=== PATIENT | male | born 1945 | race Caucasian/White ===

== ENCOUNTER 2016-08-15 06:25 | Day surgery (SDC) | payer MEDICARE ==
[~2016-08-15] VITALS: Ht 177.8 cm; Wt 108.4 kg
[2016-08-15] MEDS ORDERED: SODIUM CHLOR 0.9% 1000 ML INJ 1,000 ML IV SCH ×2 (07:15→10:26)
[2016-08-15] MEDS ORDERED: SODIUM CHLORIDE 0.9% FLUSH 5 ML FLUSH IV FLUSH PRN (07:15)
[2016-08-15] MEDS ORDERED: DO NOT GIVE AM GLUCOPHAGE, GLUCOPHAGE XR, GLIPIZIDE, GLYBURIDE OR AVANDAMET XX PRN (07:15)
[2016-08-15 07:28] VITALS: BP 178/86; PULSE 111; RESP 18; TEMP 98.2; O2SAT 93
[2016-08-15] MEDS ORDERED: DOXA1TAB35 PO (07:31)
[2016-08-15] MEDS ORDERED: METO100T PO (07:31)
[2016-08-15] MEDS ORDERED: VITA1000 PO (07:31)
[2016-08-15] MEDS ORDERED: TRIAPOW (07:31)
[2016-08-15] MEDS ORDERED: ALLO100T PO (07:31)
[2016-08-15] MEDS ORDERED: HYDR50TA15 PO (07:31)
[2016-08-15] MEDS ORDERED: CILO100T PO (07:31)
[2016-08-15] MEDS ORDERED: OXYC-395 PO (07:31)
[2016-08-15] MEDS ORDERED: SERT25TA83 PO (07:31)
[2016-08-15] MEDS ORDERED: LOSA50TA PO (07:31)
[2016-08-15] MEDS ORDERED: ROPI1TAB PO (07:31)
[2016-08-15] MEDS ORDERED: FURO80TA PO (07:31)
[2016-08-15] MEDS ORDERED: ASPI81CH CHEW (07:31)
[2016-08-15] MEDS ORDERED: HEPARIN-NS/PF INJ 500 ML ONE (08:40)
[2016-08-15] MEDS ORDERED: MIDAZOLAM HCL 2 MG/2 ML VIAL ONE ×3 (08:40→09:58)
[2016-08-15] MEDS ORDERED: HEPARIN SODIUM - IV 10,000 UNITS/10 ML VIAL ONE (08:41)
[2016-08-15] MEDS ORDERED: NITROGLYCERIN INJ 5 ML ONE (08:41)
[2016-08-15] MEDS ORDERED: SODIUM CHLORIDE 0.9% FLUSH 5 ML FLUSH IV FLUSH SCH (09:00)
[2016-08-15] MEDS ORDERED: CLOPIDOGREL 300 MG TAB ONE (09:58)
[2016-08-15] MEDS ORDERED: oxyCODONE/ACETAMINOPHEN 5 MG/325 MG TAB PO PRN ×2 (10:30)
[2016-08-15] MEDS ORDERED: LIDOCAINE HCL 1% 50 ML VIAL INFIL PRN (10:30)
[2016-08-15] MEDS ORDERED: METOCLOPRAMIDE HCL 10 MG/2 ML VIAL IV PRN (10:30)
[2016-08-15] MEDS ORDERED: SODIUM CHLOR 0.9% 250 ML INJ 250 ML IV PRN (10:30)
[2016-08-15] MEDS ORDERED: MORPHINE SULFATE 4 MG/ML INJ IV PUSH PRN (10:30)
[2016-08-15] MEDS ORDERED: POTASSIUM CHLORIDE 20 MEQ CONTROLLED RELEASE TAB PO PRN (10:30)
[2016-08-15] MEDS ORDERED: SODIUM CHLORIDE 0.9% FLUSH 5 ML FLUSH IVF PRN (10:30)
[2016-08-15] MEDS ORDERED: ONDANSETRON HCL 4 MG/2 ML VIAL IV PRN (10:30)
[2016-08-15] MEDS ORDERED: MISC INFORMATION XX PRN (10:30)
[2016-08-15] MEDS ORDERED: cloNIDine HCL 0.1 MG TAB PO PRN (10:30)
[2016-08-15] MEDS ORDERED: BACITRACIN OINT 0.9 GM PKT TOP ONE (10:30)
[2016-08-15] MEDS ORDERED: ATROPINE SULFATE 1 MG/ML VIAL IV PRN (10:30)
[2016-08-15] MEDS ORDERED: ENALAPRILAT 1.25 MG/ML VIAL IV PRN (10:30)
[2016-08-15] MEDS ORDERED: LORazepam 2 MG/ML VIAL IV PRN (10:30)
[2016-08-15] MEDS ORDERED: CLOPIDOGREL 300 MG TAB PO ONE (10:30)
[2016-08-15] MEDS ORDERED: IOHEXOL 350 MG/ML 50 ML BTL (for RAD DIAG) OTHER ONE (10:30)
[2016-08-15] MEDS ORDERED: NITROPRUSSIDE INJ 50 MG in DEXTROSE 5% IN WATER INJ 248 ML IV SCH ×2 (10:30)
[2016-08-15] MEDS ORDERED: PLAV75TA29 PO (10:37)
[2016-08-15] MEDS: LABETALOL HCL 100 MG/20 ML VIAL IVP PRN ×2 (11:25→11:42)
--- NOTE | 2016-08-15 12:58 | MA ---
cc: RACIEL GREWAL Corrected Copy: 08/15/16 DATE 08/15/2016 Peripheral angiography with intervention. PROCEDURE PERFORMED 1. Fluoroscopy with interpretation. 2. descending arteriography. 3. Bilateral lower extremity peripheral angiography, first, second, third order of visualization interpretation. 4. Orbital rotational atherectomy and balloon angioplasty with drug coated balloon of the right superficial femoral artery. 5. Percutaneous transluminal angioplasty of the right peroneal artery. METHOD Risks, benefits and alternatives were discussed with the patient, the patient understood and consented to the procedure. The patient was brought to the catheterization lab and placed on the catheterization table. Left groin was prepped and draped in sterile fashion. Left groin was anesthetized with 2% lidocaine. Left common femoral artery was cannulated and a 5-Japanese, 11 cm sheath was placed without difficulty. PROCEDURE The patient brought into the catheterization lab and placed on the catheterization table. The left groin was prepped and draped in a sterile fashion. The left groin was anesthetized with 2% lidocaine. The left common femoral artery is cannulated. A 5 Japanese 11 cm sheath was placed without difficulty. DESCENDING AORTOGRAPHY Descending aortography was performed through anterior-posterior views using a 24 cc contrast injection with good opacification. Descending aortography revealed mild infrarenal descending aortic atherosclerosis. Bilateral renal arteries are widely patent. PERIPHERAL ANGIOGRAPHY 1. Right internal, external common iliac artery is angiographically normal. Right common and femoral profunda arteries have luminal irregularities. Right superficial femoral artery has an 80% tubular stenosis in the mid segment. Popliteal artery has minor luminal irregularities. There is two-vessel runoff below the knee right lower extremity. The peroneal vessel has a 90% discrete stenosis in the midsegment. The anterior tibial has moderate diffuse disease. The posterior tibial is occluded and collateralizes distally. 2. Left internal, external common iliac arteries have minor luminal irregularities. Left common femoral and profunda arteries have mild luminal irregularities. Left superficial femoral artery has a 75% stenosis. Left popliteal has minor luminal irregularities. There is two-vessel runoff below the knee left lower extremity. Anterior tibial and peroneal vessels are patent. The posterior tibial is occluded. PERCUTANEOUS INTERVENTION A 6 Japanese 45 cm Terumo get2play pinnacle sheath was advanced up-and-over the arch. A 0.035 inch, 260 cm stiff angle Glidewire was navigated down to the popliteal artery. The Trailblazer catheter advanced behind it. Selective digital subtraction angiography confirmed intraluminal placement. A 0.014 inches 335 cm viper wire was then navigated down the peroneal vessel. A 4.0 x 20 mm Medtronic balloon was advanced down to the mid peroneal artery and deployed to 6 atmospheres. Repeat angiography showed no residual stenosis. This was done to ensure adequate runoff. Attention was then directed towards right superficial femoral artery. A 2.0 mm CSI atherectomy catheter was then prepped. Orbital rotational atherectomy was performed through the right superficial femoral artery and three sequential passes. Predilation was then performed with a 6.0 x 40 mm Medtronic balloon. Repeat angiography showed moderate residual stenosis. A 7.0 x 80 mm Medtronic drug coated balloon was then deployed for prolonged inflation in the right superficial femoral. Repeat angiography showed no residual stenosis, AMINAH-3 flow. The sheath was removed. A 6-Japanese sheath placed without difficulty. CONCLUSIONS 1. 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 2. Successful orbital rotational atherectomy and balloon angioplasty drug coated balloon of the right superficial femoral artery. 3. Successful balloon angioplasty right peroneal artery. 4. Mild infrarenal descending aortic atherosclerosis. PLAN The patient will be monitored closely for any post procedural complications. He will be initiated on Plavix in addition to continued aggressive medical therapy. Anticipate discharge later today. At some point, we may consider discussion of staged intervention of the left lower extremity. We will review to see how his symptoms develop. MD MATEUS Chi/BUSTER /10:35 AM /2:12 PM
[2016-08-15] MEDS ORDERED: FUROSEMIDE 40 MG/4 ML VIAL ONE (17:43)
[2016-08-15] MEDS ORDERED: FUROSEMIDE 40 MG/4 ML VIAL IV PUSH ONE (18:00)
[2016-08-15] MEDS ORDERED: FUROSEMIDE 80 MG TAB PO SCH (18:00)
[2016-08-15] MEDS ORDERED: SODIUM CHLORIDE 0.9% FLUSH 5 ML FLUSH IVF SCH (21:00)
[2016-08-17] MEDS ORDERED: ASPIRIN EC 81 MG TABEC PO SCH (09:00)
[2016-08-17] MEDS ORDERED: CLOPIDOGREL 75 MG TAB PO SCH (09:00)
== END 2016-08-15 18:22 | disposition home or self-care (01) ==
LOC: HDOC 06:25 → HDIC 06:27 → HDOC 18:22
PROVIDERS: ATTEND Internal Medicine
DX: I70.211 Atherosclerosis of native arteries of extremities with intermittent claudication, right leg (principal); I70.0 Atherosclerosis of aorta; I10 Essential (primary) hypertension; E11.9 Type 2 diabetes mellitus without complications; Z79.01 Long term (current) use of anticoagulants
CPT/HCPCS: 37225; 37228; 75625; 75716; 82948; 85002; 85347; 86850; 86900; 86901; C1714; C1725; C1751; C1769; C1893; C2623; J1644; J1940; J2250; J3010; J7030; Q9967